=== PATIENT | male | born 1955 | race Caucasian/White ===

== ENCOUNTER 2023-07-12 01:49 | Day surgery (SDC) | payer MEDICARE, SELFPAY ==
[2023-07-02 10:00] VITALS: BMI 28.1
--- NOTE | 2023-07-10 10:10 | SUR.PREOP ---
Patient called regarding upcoming procedure. Reviewed preop instructions, appointment times, and procedure prep.
[2023-07-12 08:11] VITALS: BP 144/79; PULSE 66; RESP 20; TEMP 36.4; O2SAT 100; BMI 27.8
[2023-07-12] MEDS: LACTATED RINGERS 1,000 ML 150 ML IV CONT (08:18)
--- NOTE | 2023-07-12 09:08 | P.PNAN_ITS ---
Anes - Initial Pre Proc Eval Procedure: Operation Date: 07/12/23 09:00 Proposed Procedures p Esophagogastroduodenoscopy & Colonoscopy - Ivan Leos MD Date/Time: 07/12/23 09:08 Surgeon: Ivan Leos MD Pre Op Diagnosis: Malignant neoplasm of sigmoid colon,Esophageal Obs Patient Data Age: 67 Gender: M Height: 1.73 m Weight: 83.1 kg Last Vital Signs Temp 97.5 F L 07/12/23 08:11 Pulse 66 07/12/23 08:11 Resp 20 07/12/23 08:11 BP 144/79 H 07/12/23 08:11 Pulse Ox 100 07/12/23 08:11 O2 Del Method Room Air 07/12/23 08:11 Allergies Allergy/AdvReac Type Severity Reaction Status Date / Time No Known Allergies Allergy Verified 07/12/23 08:07 Home Medications Medication Instructions Recorded Confirmed Type amlodipine 10 mg tablet 10 mg PO DAILY #90 tabs 08/30/22 07/02/23 Rx sildenafil 100 mg tablet (Viagra) 100 mg PO DAILY PRN sexual 03/08/23 07/02/23 Rx activity #10 tabs Patient hx anesthesia problems: none Family hx anesthesia problems: none Results Review: All pre-operative results and documents have been reviewed as part of the pre- operative evaluation. [facility] Past Medical History Medical History Bradycardia Colon polyp (~08/15/17) Erectile dysfunction Essential (primary) hypertension Lumbar spondylosis (~07/12/17) Tubular adenoma (~09/17/18) Surgical History Surgical History History of tonsillectomy Family History Family History Other Cerebrovascular accident Depression Diabetes mellitus Family history of glaucoma Family history of hypercholesterolemia Hypertension Social History Social History Social History: Caffeine- daily Smoking status: Never smoker Alcohol intake: current Drinks per week: 7 Alcohol use details: DRINKS Substance use: never Substance use type: does not use Living arrangements: with family Spiritual care concerns: No Anes - Eval Final PreProcedure Day of Procedure 07/12/23 09:08 Patient weight: normal Heart: regular rate and rhythm Lungs: clear to auscultation Airway: Mallampati scale class II Neurological: alert and oriented Last oral intake: >/= 8 hours ASA classification: III Emergent: no Anesthetic plan: proceed Anesthesia type and monitoring: general GIVS and standard monitoring Results Review: All pre-operative results and documents have been reviewed as part of the pre- operative evaluation. Informed Consent: The patient's anesthetic plan and its attendant risks and benefits were discussed with the patient/family/POA. Questions were solicited and answers provided to the satisfaction of the patient/family/POA.
--- NOTE | 2023-07-12 09:10 | PM.HPGS ---
History of Present Illness History of Present Illness Consent: Risks, benefits, and alternatives have been discussed and questions answered. Patient agrees to proceed with procedure. Chief complaint: Malignant neoplasm of sigmoid colon,Esophageal Obs Narrative: Oseas Harrison is a 67 year old male here for egd and colonoscopy, had sigmoid cancer 2018 s/p resection (had stricture of anastomosis s/o dilation), last colonoscopy 3 years ago without any changes. Also noted progressive dysphagia to solids lower chest, never had egd, he is not taking ppi. Review of Systems Constitutional: Constitutional: Denies headache(s) and Denies weakness Eyes: Eyes: Denies blurry vision ENT: Reports Normal hearing present, Denies headache(s) and Denies neck pain Cardiovascular: Cardiovascular: Denies chest pain and Denies dyspnea Respiratory: Respiratory: Denies dyspnea Gastrointestinal: Gastrointestinal: Reports no additional gastrointestinal complaints Genitourinary: Genitourinary: Denies dysuria Musculoskeletal: Musculoskeletal: Denies neck pain Integumentary/Breasts: Skin/Breast: Denies dry skin Neurologic: Reports Normal hearing present, Denies headache(s) and Denies weakness Psychiatric: Psychiatric: Denies anxiety Endocrine: Endocrine: Denies change in body appearance Hematologic/Lymphatic: Hematologic/Lymphatic: Denies easy bleeding Allergic/Immunologic: Allergic/Immunologic: Denies urticaria PMF Past Medical History Medical History (Updated 07/12/23 @ 09:11 by Ivan Leos MD) Bradycardia Colon polyp (~08/15/17) Dysphagia Erectile dysfunction Essential (primary) hypertension Lumbar spondylosis (~07/12/17) Tubular adenoma (~09/17/18) Surgical History Surgical History History of tonsillectomy Family History Family History Other Cerebrovascular accident Depression Diabetes mellitus Family history of glaucoma Family history of hypercholesterolemia Hypertension Social History Social History Social History: Caffeine- daily Smoking status: Never smoker Alcohol intake: current Drinks per week: 7 Alcohol use details: DRINKS Substance use: never Substance use type: does not use Living arrangements: with family Spiritual care concerns: No Meds Home Medications and Allergies Home Medications Medication Instructions Recorded Confirmed Type amlodipine 10 mg tablet 10 mg PO DAILY #90 tabs 08/30/22 07/02/23 Rx sildenafil 100 mg tablet (Viagra) 100 mg PO DAILY PRN sexual 03/08/23 07/02/23 Rx activity #10 tabs Allergies Allergy/AdvReac Type Severity Reaction Status Date / Time No Known Allergies Allergy Verified 07/12/23 08:07 Vital Signs Vital Signs - 24 hr 07/12/23 08:11 Temperature 97.5 F L Pulse Rate 66 Respiratory Rate 20 Blood Pressure 144/79 H Pulse Oximetry 100 Oxygen Delivery Room Air Exam Const: General: comfortable and no acute distress HENMT: Face/Nose/Sinus: Normal nares present Eyes: General: appearance normal, both eyes and all related structures Neck: Neck: no JVD Resp: Auscultation: clear to auscultation bilaterally Cardio: Rate: regular rate Rhythm: regular rhythm GI: Inspection: non-distended GI Palp: Yes Soft to palpation Skin: General skin exam: normal color Neuro: General: gait normal Speech: normal speech Extrem: General: normal to inspection Psych: Mental Status: mental status grossly normal Assessment and Plan Assessment and plan (1) Adenocarcinoma of sigmoid colon: Code(s): C18.7 - Malignant neoplasm of sigmoid colon Status: Acute Assessment and Plan: treated by surgery 2018 colonoscopy for surveillance (2) Dysphagia: Code(s): R13.10 - Dysphagia, unspecified Status: Acute Assess
[2023-07-12 09:40] VITALS: BP 126/77; PULSE 58; RESP 18; O2SAT 100
--- NOTE | 2023-07-12 09:40 | SUR.OPER ---
EGD START: 914; END: 920. COLONOSCOPY START: 925; END: 936.
[2023-07-12 09:50] VITALS: BP 126/77; PULSE 59; RESP 21; O2SAT 99
[2023-07-12 10:00] VITALS: BP 140/90; PULSE 65; RESP 26; O2SAT 100
== END 2023-07-12 10:20 | disposition home or self-care (01) ==
PROVIDERS: PCP Family Medicine; Visit Provider Internal Medicine Gastroenterology
PROC: 0DJ08ZZ Inspection of Upper Intestinal Tract, Via Natural or Artificial Opening Endoscopic (ICD-10-PCS; CPT 43235; principal; 2023-07-12 09:00)
DX: Z08 Encounter for follow-up examination after completed treatment for malignant neoplasm (principal); D12.3 Benign neoplasm of transverse colon; K64.8 Other hemorrhoids; Z98.0 Intestinal bypass and anastomosis status; Z90.49 Acquired absence of other specified parts of digestive tract; Z85.038 Personal history of other malignant neoplasm of large intestine; K22.10 Ulcer of esophagus without bleeding; K21.00 Gastro-esophageal reflux disease with esophagitis, without bleeding; K22.2 Esophageal obstruction; K44.9 Diaphragmatic hernia without obstruction or gangrene; K57.30 Diverticulosis of large intestine without perforation or abscess without bleeding; I10 Essential (primary) hypertension; N52.9 Male erectile dysfunction, unspecified; Z98.890 Other specified postprocedural states; Z86.010 Personal history of colon polyps; Z82.49 Family history of ischemic heart disease and other diseases of the circulatory system
CPT/HCPCS: 43249; 45385; 43239; 88305; C1726; J2001; J2704; J7120

== ENCOUNTER 2024-03-31 13:52 | Outpatient (CLI) | payer MEDICARE, SELFPAY | END 2024-03-31 13:53 | disposition home or self-care (01) | LOC: ANHAUDIO 13:54 | PROVIDERS: PCP Family Medicine; Visit Provider Otolaryngology | DX: H90.3 Sensorineural hearing loss, bilateral (principal); H69.91 Unspecified Eustachian tube disorder, right ear; H92.09 Otalgia, unspecified ear; J30.2 Other seasonal allergic rhinitis | CPT/HCPCS: 92557; 92567 ==

== ENCOUNTER 2024-05-21 13:01 | Outpatient (CLI) | payer MEDICARE, SELFPAY ==
--- NOTE | 2024-05-21 14:00 | NEURO_ITS ---
Impression: # Non diabetic Complains of numbness of right hand. . ? # Right Carpal Tunnel Syndrome sensory more than motor. ? # Right ulnar neuropathy around the elbow. ? # Needle/EMG exam of a right abductor pollicis brevis and right abductor digiti minimi abnormal. Nerve Conduction Studies Anti Sensory Summary Table ?Stim Site NR Peak (ms) P-T Amp (?V) Site1 Site2 Delta-P (ms) Dist (cm) Cb (m/s) Right Median Anti Sensory (2-3nd Digit) Wrist ? 6.5 8.9 Wrist 2-3nd Digit 6.5 14.0 22 Wrist ? 5.5 26.7 Wrist 2-3nd Digit 6.5 14.0 22 Right Radial Anti Sensory (Base 1st Digit) Wrist ? 2.3 9.7 Wrist Base 1st Digit 2.3 0.0 Right Ulnar Anti Sensory (5th Digit) Wrist ? 3.7 38.3 Wrist 5th Digit 3.7 14.0 38 Motor Summary Table ?Stim Site NR Onset (ms) O-P Amp (mV) Site1 Site2 Delta-0 (ms) Dist (cm) Cb (m/s) Right Median Motor (Abd Poll Brev) Wrist ? 3.5 1.7 Elbow Wrist 5.0 29.0 58 Elbow ? 8.5 1.4 Right Ulnar Motor (Abd Dig Minimi) Wrist ? 2.6 6.4 A Elbow Wrist 6.2 29.0 47 A Elbow ? 8.8 4.7 B Elbow Wrist 3.6 18.0 50 B Elbow ? 6.2 1.9 F Wave Studies ?NR F-Lat (ms) L-R F-Lat (ms) Right Median (Mrkrs) (Abd Poll Brev) ? 29.42 Right Ulnar (Mrkrs) (Abd Dig Min) ? 28.41 EMG ?Side Muscle Nerve Root Ins Act Fibs Amp Dur Recrt Comment Right 1stDorInt Ulnar C8-T1 Nml Nml Decr Nml +2 Right Ext Indicis Radial (Post Int) C7-8 Nml Nml Nml Nml Nml Right Ext Digitorum Radial (Post Int) C7-8 Nml Nml Nml Nml Nml Right BrachioRad Radial C5-6 Nml Nml Nml Nml Nml Right PronatorTeres Median C6-7 Nml Nml Nml Nml Nml Right Abd Poll Brev Median C8-T1 Nml Nml Decr >12ms +1 Right ABD Dig Min Ulnar C8-T1 Nml Nml Decr >12ms +1 Right Biceps Musculocut C5-6 Nml Nml Nml Nml Nml Right Triceps Radial C6-7-8 Nml Nml Nml Nml Nml Right Deltoid Axillary C5-6 Nml Nml Nml Nml Nml MTDD
== END 2024-05-21 13:02 | disposition home or self-care (01) ==
LOC: ANHNEURO 13:03
PROVIDERS: PCP Family Medicine; Visit Provider Family Medicine
DX: G56.01 Carpal tunnel syndrome, right upper limb (principal); G56.21 Lesion of ulnar nerve, right upper limb
CPT/HCPCS: 95886; 95909

== ENCOUNTER 2024-05-22 01:46 | Day surgery (SDC) | payer MEDICARE, SELFPAY ==
[2024-05-06 08:24] VITALS: BMI 29.6
[2024-05-22 09:46] VITALS: BP 157/83; PULSE 67; RESP 16; TEMP 36.2; O2SAT 99
--- NOTE | 2024-05-22 09:57 | P.PNAN_ITS ---
Anes - Initial Pre Proc Eval Procedure: Operation Date: 05/22/24 11:00 Proposed Procedures p Esophagogastroduodenoscopy - Ivan Leos MD Date/Time: 05/22/24 09:57 Surgeon: Ivan Leos MD Pre Op Diagnosis: Esophageal obstruction Patient Data Age: 68 Gender: M Height: 1.73 m Weight: 90 kg Last Vital Signs Temp 36.2 C L 05/22/24 09:46 Pulse 67 05/22/24 09:46 Resp 16 05/22/24 09:46 BP 157/83 H 05/22/24 09:46 Pulse Ox 99 05/22/24 09:46 O2 Del Method Room Air 05/22/24 09:46 Allergies Allergy/AdvReac Type Severity Reaction Status Date / Time No Known Allergies Allergy Verified 05/22/24 09:46 Home Medications ?Medication ?Instructions ?Recorded ?Confirmed ?Type hydrochlorothiazide 12.5 mg tablet 12.5 mg PO DAILY #90 tabs 09/06/23 05/22/24 Rx pantoprazole 40 mg tablet,delayed 40 mg PO QAM #90 tabs 01/02/24 05/22/24 Rx release tadalafil 20 mg tablet (Cialis) 20 mg PO DAILY PRN sexual activity 03/10/24 05/06/24 Rx #30 tabs amlodipine 10 mg tablet 10 mg PO DAILY #90 tabs 03/24/24 05/22/24 Rx fexofenadine 60 mg tablet (Domonique 10 mg PO DAILY 05/06/24 05/22/24 History Allergy) Patient hx anesthesia problems: none Family hx anesthesia problems: none Results Review: All pre-operative results and documents have been reviewed as part of the pre-operative evaluation. [facility] Past Medical History Medical History Dysphagia Erectile dysfunction Bradycardia Essential (primary) hypertension Lumbar spondylosis (~07/12/17) Tubular adenoma (~09/17/18) Colon polyp (~08/15/17) Surgical History Surgical History History of tonsillectomy Family History Family History Other Cerebrovascular accident Depression Diabetes mellitus Family history of glaucoma Family history of hypercholesterolemia Hypertension Social History Social History Social History: Caffeine- daily Smoking status: Never smoker Alcohol intake: current Drinks per week: 7 Alcohol use details: DRINKS Substance use: never Substance use type: does not use Living arrangements: with family Spiritual care concerns: No Anes - Eval Final PreProcedure Day of Procedure 05/22/24 09:57 Patient weight: overweight Heart: regular rate and rhythm Lungs: clear to auscultation Airway: Mallampati scale class II Neurological: alert and oriented Last oral intake: >/= 8 hours ASA classification: II Emergent: no Anesthetic plan: proceed Anesthesia type and monitoring: general GIVS and standard monitoring Results Review: All pre-operative results and documents have been reviewed as part of the pre- operative evaluation. Informed Consent: The patient's anesthetic plan and its attendant risks and benefits were discussed with the patient/family/POA. Questions were solicited and answers provided to the satisfaction of the patient/family/POA.
[2024-05-22] MEDS: LACTATED RINGERS 1,000 ML 150 ML IV CONT (10:00)
--- NOTE | 2024-05-22 10:35 | PM.HPGS ---
History of Present Illness History of Present Illness Consent: Risks, benefits, and alternatives have been discussed and questions answered. Patient agrees to proceed with procedure. Chief complaint: Esophageal obstruction Narrative: Oseas Harrison is a 68 year old male with esophageal ring and esophagitis, dilated 07/2023 and much better, also on ppi Review of Systems Review of Systems: All systems reviewed & are unremarkable except as noted in HPI and below PMFSH Past Medical History Medical History Dysphagia Erectile dysfunction Bradycardia Essential (primary) hypertension Lumbar spondylosis (~07/12/17) Tubular adenoma (~09/17/18) Colon polyp (~08/15/17) Surgical History Surgical History History of tonsillectomy Family History Family History Other Cerebrovascular accident Depression Diabetes mellitus Family history of glaucoma Family history of hypercholesterolemia Hypertension Social History Social History Social History: Caffeine- daily Smoking status: Never smoker Alcohol intake: current Drinks per week: 7 Alcohol use details: DRINKS Substance use: never Substance use type: does not use Living arrangements: with family Spiritual care concerns: No Meds Home Medications and Allergies Home Medications ?Medication ?Instructions ?Recorded ?Confirmed ?Type hydrochlorothiazide 12.5 mg tablet 12.5 mg PO DAILY #90 tabs 09/06/23 05/22/24 Rx pantoprazole 40 mg tablet,delayed 40 mg PO QAM #90 tabs 01/02/24 05/22/24 Rx release tadalafil 20 mg tablet (Cialis) 20 mg PO DAILY PRN sexual activity 03/10/24 05/06/24 Rx #30 tabs amlodipine 10 mg tablet 10 mg PO DAILY #90 tabs 03/24/24 05/22/24 Rx fexofenadine 60 mg tablet (Domonique 10 mg PO DAILY 05/06/24 05/22/24 History Allergy) Allergies Allergy/AdvReac Type Severity Reaction Status Date / Time No Known Allergies Allergy Verified 05/22/24 09:46 Vital Signs Vital Signs - 24 hr 05/22/24 09:46 Temperature 97.2 F L Pulse Rate 67 Respiratory Rate 16 Blood Pressure 157/83 H Pulse Oximetry 99 Oxygen Delivery Room Air Exam Const: General: comfortable and no acute distress HENMT: Face/Nose/Sinus: Normal nares present Eyes: General: appearance normal, both eyes and all related structures Neck: Neck: no JVD Resp: Auscultation: clear to auscultation bilaterally Cardio: Rate: regular rate Rhythm: regular rhythm GI: Inspection: non-distended GI Palp: Yes Soft to palpation Skin: General skin exam: normal color Neuro: General: gait normal Speech: normal speech Extrem: General: normal to inspection Psych: Mental Status: mental status grossly normal Assessment and Plan Assessment and plan (1) Dysphagia: Code(s): R13.10 - Dysphagia, unspecified Status: Acute Assessment and Plan: egd
[2024-05-22 10:49] VITALS: BP 126/75; PULSE 72; RESP 26; O2SAT 94
[2024-05-22 10:59] VITALS: BP 128/75; PULSE 63; RESP 21; O2SAT 97
[2024-05-22 11:09] VITALS: BP 145/80; PULSE 65; RESP 18; O2SAT 99
== END 2024-05-22 11:19 | disposition home or self-care (01) ==
PROVIDERS: PCP Family Medicine; Visit Provider Internal Medicine Gastroenterology
PROC: 0DJ08ZZ Inspection of Upper Intestinal Tract, Via Natural or Artificial Opening Endoscopic (ICD-10-PCS; CPT 43235; principal; 2024-05-22 11:00)
DX: R13.10 Dysphagia, unspecified (principal); K21.9 Gastro-esophageal reflux disease without esophagitis; Z87.19 Personal history of other diseases of the digestive system
CPT/HCPCS: 43235; J2003; J2704; J7120

== ENCOUNTER 2024-07-22 13:25 | Outpatient (CLI) | payer MEDICARE, SELFPAY ==
--- NOTE | ~2024-07-22 | XR_ITS ---
Right Knee Technique: AP, lateral, and sunrise views were obtained. Clinical History: Pain Findings: No fracture or dislocation is seen. Osseous alignment is anatomic. Joint spaces are preserv ed without degenerative or erosive change. Probable small joint effusion is seen. Impression: Probable small joint effusion. Reviewed, dictated and finalized at [facility]. Impression: Probable small joint effusion.
== END 2024-07-22 13:26 | disposition home or self-care (01) ==
PROVIDERS: PCP Nurse Practitioner Family; Visit Provider Nurse Practitioner Family
DX: M25.561 Pain in right knee (principal)
CPT/HCPCS: 73562